=== PATIENT | female | born 1975 | race Caucasian/White ===

== ENCOUNTER 2020-10-16 11:05 | Emergency (ER) | payer MEDICAID ==
[~2020-10-16] VITALS: Ht 154.9 cm; Wt 63.5 kg
[2020-10-16 11:09] VITALS: BP 158/93; Ht 154.9 cm; Wt 63.5 kg
== END 2020-10-16 12:03 | disposition home or self-care (01) ==
LOC: ED 11:05
DX: U07.1 COVID-19 (principal); J12.89 Other viral pneumonia